=== PATIENT | male | born 1960 | race Caucasian/White ===

== ENCOUNTER 2019-05-19 10:17 | Day surgery (SDC) | payer BC ==
[~2019-05-19] VITALS: Ht 180.3 cm; Wt 97.4 kg
[2019-05-19] VITALS (12 sets, daily range): BP systolic 122–156; BP diastolic 72–91
[2019-05-19] MEDS ORDERED: normal saline 1,000 ML IV SCH (10:40)
[2019-05-19] MEDS ORDERED: diphenhydrAMINE 25mg capsule PO PRN (10:40)
[2019-05-19] MEDS ORDERED: LORazepam 0.5 MG tablet PO PRN (10:40)
[2019-05-19] MEDS ORDERED: nitroGLYCERIN 0.4mg SUBLingual tab SL PRN (10:40)
[2019-05-19] MEDS ORDERED: OMEP40CA13 PO (11:12)
[2019-05-19] MEDS ORDERED: ATOR10TA PO (11:12)
[2019-05-19] MEDS ORDERED: TEST200V10 IM (11:12)
[2019-05-19] MEDS ORDERED: AMLO2.5T2 PO (11:12)
[2019-05-19] MEDS ORDERED: FLO0.4C PO (11:12)
[2019-05-19] MEDS ORDERED: LOSA25TA96 PO (11:12)
[2019-05-19] MEDS ORDERED: TADA2.5T2 PO (11:12)
[2019-05-19] MEDS ORDERED: iohexol 350 MG/ML 50ML vial IV ONE (12:00)
[2019-05-19] MEDS ORDERED: LIDOcaine 1% (10mg/ml)w/preservative injection 20ml MDV ONE (12:00)
[2019-05-19] MEDS ORDERED: iohexol 350MG/ML 100ml bottle IV ONE (12:00)
[2019-05-19] MEDS ORDERED: midazolam 2 mg/2 ml injection ONE ×2 (12:02→12:07)
[2019-05-19] MEDS ORDERED: fentaNYL/PF 50MCG/1 ML 2ML syringe ONE (12:02)
[2019-05-19] MEDS ORDERED: proCHLORperazine 10 MG/2 ml inj IV PRN (13:00)
[2019-05-19] MEDS ORDERED: HYDROcodone/acetaminophen 5mg/325mg tablet PO PRN (13:00)
[2019-05-19] MEDS ORDERED: HYDROcodone/acetaminophen 10/325mg tab PO PRN (13:00)
[2019-05-19] MEDS ORDERED: OXAZEpam 15mg capsule PO PRN (13:00)
[2019-05-19] MEDS ORDERED: ondansetron/PF 4mg/2ml inj IV PRN (13:00)
== END 2019-05-19 18:50 | disposition home or self-care (01) ==
LOC: SSTAY O 10:17
PROVIDERS: ATTEND Internal Medicine Cardiovascular Disease
DX: I25.118 Atherosclerotic heart disease of native coronary artery with other forms of angina pectoris (principal); I10 Essential (primary) hypertension; E78.5 Hyperlipidemia, unspecified; Z87.891 Personal history of nicotine dependence; Z79.899 Other long term (current) drug therapy; K21.9 Gastro-esophageal reflux disease without esophagitis; M19.90 Unspecified osteoarthritis, unspecified site; N40.0 Benign prostatic hyperplasia without lower urinary tract symptoms; Z98.890 Other specified postprocedural states; Z79.82 Long term (current) use of aspirin
CPT/HCPCS: 82948; 93005; 93459; 99152; 99153; C1769; J1644; J2001; J2250; J3010; J7030; Q9967; 93458; A4620; A6258; C1760